=== PATIENT | male | born 1975 | race Two or more races ===

== ENCOUNTER 2021-07-01 21:43 | Emergency (ER) | payer OTHER ==
[2021-07-01 21:52] VITALS: BP 164/100; PULSE 80; TEMP 98.7; BMI 30.8
[2021-07-01] MEDS ORDERED: CYCLOBENZAPRINE HCL 10 MG TABLET (FP) PO ONE (22:03)
[2021-07-01] MEDS ORDERED: KETOROLAC TROMETHAMINE 60 MG/2 ML VIAL IM ONE (22:03)
[2021-07-01] MEDS ORDERED: predniSONE 20 MG TABLET (UD) PO ONE (22:03)
[2021-07-01] MEDS ORDERED: KETOROLAC TROMETHAMINE 60 MG/2 ML VIAL ONE (22:09)
[2021-07-01] MEDS ORDERED: predniSONE 20 MG TABLET (UD) ONE (22:09)
[2021-07-01] MEDS ORDERED: METHOCARBAMOL 500 MG TABLET ONE (22:11)
[2021-07-01] MEDS ORDERED: METHOCARBAMOL 500 MG TABLET PO ONE (22:11)
== END 2021-07-01 22:21 | disposition home or self-care (01) ==
LOC: FER 21:43
PROC: 3E0233Z Introduction of Anti-inflammatory into Muscle, Percutaneous Approach (ICD-10-PCS; principal; 2021-07-01)
DX: M54.6 Pain in thoracic spine (principal); M62.830 Muscle spasm of back
CPT/HCPCS: 99283-25

== ENCOUNTER 2021-07-10 11:23 | Emergency (ER) | payer OTHER ==
[2021-07-10] MEDS ORDERED: IBUPROFEN 400 MG TABLET (FP) PO ONE (11:28)
[2021-07-10 11:39] VITALS: BP 151/100; PULSE 97; TEMP 99.3; BMI 31.4
[2021-07-10] MEDS ORDERED: ACETAMINOPHEN 325 MG TABLET (FP) PO ONE (11:46)
[2021-07-10] MEDS ORDERED: ACETAMINOPHEN 325 MG TABLET (FP) ONE (11:54)
== END 2021-07-10 12:12 | disposition home or self-care (01) ==
LOC: FER 11:23
DX: M54.6 Pain in thoracic spine (principal)
CPT/HCPCS: 99283-25

== ENCOUNTER 2023-03-24 18:59 | Inpatient (IN) | payer OTHER ==
[2023-03-24 19:10] VITALS: BMI 29.4
[2023-03-24] MEDS ORDERED: SODIUM CHLORIDE 0.9% 500 ML INFUS.BAG IV ONE (20:17)
[2023-03-24 20:23] LABS: VENOUS BASE EXCESS -1.1 mmol/L (-2-2); VENOUS O2 SATURATION 63.6 % (70-80); VENOUS PCO2 48.5 mmHg (38-52); VENOUS PH 7.336 (7.310-7.410)
[2023-03-24 20:30] LABS: INR 0.97 (0.83-1.09); PROTHROMBIN TIME (PATIENT) 11.3 SEC (9.7-13.0)
[2023-03-24 20:32] LABS: PH,URINE 5.5 (5.0-8.0); URINE APPEARANCE CLEAR; URINE BILIRUBIN NEGATIVE (NEGATIVE); URINE COLOR YELLOW; URINE GLUCOSE (UA) 3+ (NEGATIVE); URINE KETONE NEGATIVE (NEGATIVE); URINE LEUK ESTERASE NEGATIVE (NEGATIVE); URINE NITRITE NEGATIVE (NEGATIVE); URINE PROTEIN NEGATIVE (NEGATIVE); URINE UROBILINOGEN 0.2 mg/dL (0.2-1.0)
[2023-03-24 20:33] LABS: ACTIVATED PTT 25.4 SECONDS (25.2-36.5)
[2023-03-24 20:44] LABS: CALCIUM 9.2 mg/dL (8.5-10.1)
[2023-03-24 20:45] LABS: BLOOD UREA NITROGEN 18.8 mg/dL (7-18); CO2 25 mmol/L (21-32)
[2023-03-24 20:48] LABS: CREATININE 1.8 mg/dL (0.55-1.3); SGOT/AST 55 U/L (15-37); SGPT/ALT 41 U/L (13-61)
[2023-03-24 20:49] LABS: BILIRUBIN,TOTAL 0.8 mg/dL (0.2-1)
[2023-03-24 20:50] LABS: TOT PROT 7.2 g/dl (6.4-8.2)
[2023-03-24 20:51] LABS: ALK PHOS 115 U/L (45-117)
[2023-03-24 20:53] LABS: LACTIC ACID 2.1 mmol/L (0.4-2.0)
[2023-03-24 21:17] LABS: BASO % 0.8 % (0-2.0); EOS % 0.5 % (0-4.5); HEMATOCRIT 40.3 % (35.4-49); HEMOGLOBIN 13.7 GM/dL (11.7-16.9); LYMPH % 22.1 % (8-40); MCH 30.5 pg (25.7-33.7); MCHC 33.9 g/dl (32.0-35.9); MEAN CELL VOLUME 89.8 fl (80-96); MEAN PLT VOLUME 9.4 fl (7.5-11.1); MONO % 7.6 % (3.8-10.2); PLATELET COUNT 254 10^3/uL (134-434); RBC 4.49 M/mm3 (4.00-5.60); RDW 13.4 % (11.9-15.9); WHITE BLOOD COUNT 14.4 K/mm3 (4.0-10.0)
[2023-03-24 21:23] LABS: CHLORIDE 94 mmol/L (98-107); POTASSIUM 3.9 mmol/L (3.5-5.1); SODIUM 127 mmol/L (136-145)
[2023-03-24 21:43] LABS: GLUCOSE,RANDOM 584 mg/dL (74-106)
[2023-03-24] MEDS ORDERED: INSULIN REGULAR HUMAN 100 UNITS/ML *VIAL SQ ONE (22:16)
[2023-03-24] MEDS ORDERED: POTASSIUM CHLORIDE ORAL LIQUID 20 MEQ/15 ML PO ONE (22:16)
[2023-03-24] MEDS ORDERED: POTASSIUM CHLORIDE ORAL LIQUID 20 MEQ/15 ML ONE (22:23)
[2023-03-24 22:57] LABS: MAGNESIUM 2.1 mg/dL (1.8-2.4)
[2023-03-25] MEDS ORDERED: HEPARIN NA (PORCINE) 5,000 UNITS/ML 1ML VIAL ONE (06:08)
[2023-03-25] MEDS: HEPARIN NA (PORCINE) 5,000 UNITS/ML 1ML VIAL SQ SCH ×3 (06:30→22:36)
[2023-03-25] MEDS: INSULIN SLIDING SCALE (NOVOLOG) 1 VIAL SQ SCH ×3 (06:31→16:01)
[2023-03-25] MEDS: LACTATED RINGERS SOLUTION 1,000 ML/1,000 ML INFUS.BAG IV SCH ×2 (06:31→14:04)
[2023-03-25] MEDS ORDERED: INSULIN (NOVOLOG) ASPART 100 UNITS/ML 10ML VIAL ONE (06:37)
[2023-03-25 07:39] LABS: HEMATOCRIT 40.7 % (35.4-49); HEMOGLOBIN 13.7 GM/dL (11.7-16.9); MCH 31.1 pg (25.7-33.7); MCHC 33.5 g/dl (32.0-35.9); MEAN CELL VOLUME 92.8 fl (80-96); MEAN PLT VOLUME 9.7 fl (7.5-11.1); PLATELET COUNT 209 10^3/uL (134-434); RBC 4.39 M/mm3 (4.00-5.60); RDW 13.4 % (11.9-15.9); WHITE BLOOD COUNT 12.4 K/mm3 (4.0-10.0)
[2023-03-25 07:57] LABS: POTASSIUM 3.8 mmol/L (3.5-5.1)
[2023-03-25 07:59] LABS: BLOOD UREA NITROGEN 13.2 mg/dL (7-18); CALCIUM 8.8 mg/dL (8.5-10.1); MAGNESIUM 1.9 mg/dL (1.8-2.4)
[2023-03-25 08:02] LABS: PHOSPHOROUS 3.2 mg/dL (2.5-4.9)
[2023-03-25 08:04] LABS: BILIRUBIN,TOTAL 0.9 mg/dL (0.2-1); TOT PROT 7.1 g/dl (6.4-8.2)
[2023-03-25] MEDS ORDERED: GABAPENTIN 300 MG CAPSULE ONE (08:04)
[2023-03-25] MEDS ORDERED: NICOTINE 7 MG/24 HOURS TOPICAL PATCH TD ONE (08:04)
[2023-03-25] MEDS: GABAPENTIN 300 MG CAPSULE PO SCH ×3 (08:24→22:37)
[2023-03-25 08:26] LABS: CREATININE 1.2 mg/dL (0.55-1.3)
[2023-03-25] MEDS ORDERED: LACTATED RINGERS SOLUTION 1000 ML INFUS.BAG IV ONE (09:15)
[2023-03-25] MEDS ORDERED: INSULIN (LEVEMIR) 100 UNITS/ML UNITS SQ SCH (10:00)
[2023-03-25] MEDS ORDERED: NICOTINE 7 MG/24 HOURS TOPICAL PATCH TD SCH (10:00)
[2023-03-25 12:20] LABS: COCAINE, UR NEGATIVE (NEGATIVE); METHADONE, UR NEGATIVE (NEGATIVE); PHENCYCLIDINE,URINE NEGATIVE (NEGATIVE); URINE BARBITURATES NEGATIVE (NEGATIVE); URINE BENZODIAZEPINES NEGATIVE (NEGATIVE)
[2023-03-25 12:21] LABS: OPIATES, URI POSITIVE (NEGATIVE); URINE AMPHETAMINES NEGATIVE (NEGATIVE)
[2023-03-25] MEDS ORDERED: ATORVASTATIN CA 40 MG TABLET (FP) PO SCH (22:00)
[2023-03-25] MEDS: INSULIN (LEVEMIR) 100 UNITS/ML UNITS SQ SCH (22:36)
[2023-03-26] MEDS: HEPARIN NA (PORCINE) 5,000 UNITS/ML 1ML VIAL SQ SCH ×3 (06:24→22:36)
[2023-03-26] MEDS: GABAPENTIN 300 MG CAPSULE PO SCH ×3 (06:24→22:36)
[2023-03-26] MEDS: INSULIN (LEVEMIR) 100 UNITS/ML UNITS SQ SCH ×2 (06:24→22:35)
[2023-03-26] MEDS: INSULIN SLIDING SCALE (NOVOLOG) 1 VIAL SQ SCH ×3 (06:32→17:37)
[2023-03-26 07:34] LABS: HEMATOCRIT 39.1 % (35.4-49); MCH 30.9 pg (25.7-33.7); MCHC 33.2 g/dl (32.0-35.9); MEAN PLT VOLUME 8.8 fl (7.5-11.1); PLATELET COUNT 206 10^3/uL (134-434); RDW 13.2 % (11.9-15.9); WHITE BLOOD COUNT 7.7 K/mm3 (4.0-10.0)
[2023-03-26 07:36] LABS: CHLORIDE 99 mmol/L (98-107); POTASSIUM 4.6 mmol/L (3.5-5.1); SODIUM 137 mmol/L (136-145)
[2023-03-26 07:40] LABS: ANION GAP 11 mmol/L (4-13); BLOOD UREA NITROGEN 16.5 mg/dL (7-18); CO2 28 mmol/L (21-32)
[2023-03-26 07:43] LABS: PHOSPHOROUS 3.5 mg/dL (2.5-4.9)
[2023-03-26 07:44] LABS: CREATININE 1.3 mg/dL (0.55-1.3)
[2023-03-26 07:50] LABS: GLUCOSE,RANDOM 452 mg/dL (74-106)
[2023-03-26] MEDS: LACTATED RINGERS SOLUTION 1,000 ML/1,000 ML INFUS.BAG IV SCH (09:11)
[2023-03-26] MEDS: NICOTINE 21 MG/24 HOURS TOPICAL PATCH TD SCH (10:44)
[2023-03-26] MEDS: INSULIN (NOVOLOG) ASPART 100 UNITS/ML 10ML VIAL SQ SCH (17:38)
[2023-03-26] MEDS: NICOTINE POLACRILEX 4 MG GUM BUC PRN (20:30)
[2023-03-27] MEDS ORDERED: hydrOXYzine PAMOATE 25 MG CAPSULE (FP) PO ONE (05:36)
[2023-03-27] MEDS: NICOTINE POLACRILEX 4 MG GUM BUC PRN (06:00)
[2023-03-27] MEDS: HEPARIN NA (PORCINE) 5,000 UNITS/ML 1ML VIAL SQ SCH ×2 (06:09→14:08)
[2023-03-27] MEDS: GABAPENTIN 300 MG CAPSULE PO SCH ×2 (06:09→14:08)
[2023-03-27] MEDS: INSULIN (LEVEMIR) 100 UNITS/ML UNITS SQ SCH (06:13)
[2023-03-27] MEDS: INSULIN (NOVOLOG) ASPART 100 UNITS/ML 10ML VIAL SQ SCH ×2 (06:13→12:31)
[2023-03-27] MEDS: INSULIN SLIDING SCALE (NOVOLOG) 1 VIAL SQ SCH ×2 (06:15→12:06)
[2023-03-27] MEDS: LACTATED RINGERS SOLUTION 1,000 ML/1,000 ML INFUS.BAG IV SCH (09:44)
[2023-03-27] MEDS: NICOTINE 21 MG/24 HOURS TOPICAL PATCH TD SCH (09:45)
[2023-03-27 10:52] LABS: EOS % 1.1 % (0-4.5); HEMATOCRIT 41.9 % (35.4-49); LYMPH % 22.9 % (8-40); MCH 30.5 pg (25.7-33.7); MCHC 33.4 g/dl (32.0-35.9); MEAN CELL VOLUME 91.4 fl (80-96); MEAN PLT VOLUME 8.4 fl (7.5-11.1); MONO % 6.3 % (3.8-10.2); NEUT % 68.7 % (42.8-82.8); PLATELET COUNT 230 10^3/uL (134-434); RBC 4.58 M/mm3 (4.00-5.60); RDW 13.1 % (11.9-15.9); WHITE BLOOD COUNT 7.8 K/mm3 (4.0-10.0)
[2023-03-27] MEDS ORDERED: INSULIN (LEVEMIR) 100 UNITS/ML UNITS SQ SCH ×2 (11:26→11:30)
[2023-03-27] MEDS ORDERED: INSULIN (LEVEMIR) 100 UNITS/ML UNITS SQ ONE ×2 (11:26→12:15)
[2023-03-27] MEDS ORDERED: INSULIN (NOVOLOG) ASPART 100 UNITS/ML 10ML VIAL SQ SCH (11:30)
[2023-03-27 12:07] LABS: ALBUMIN 3.7 g/dl (3.4-5.0); BLOOD UREA NITROGEN 9.9 mg/dL (7-18); CALCIUM 9.4 mg/dL (8.5-10.1)
[2023-03-27 12:08] LABS: MAGNESIUM 1.9 mg/dL (1.8-2.4)
[2023-03-27 12:10] LABS: PHOSPHOROUS 2.8 mg/dL (2.5-4.9)
[2023-03-27 12:11] LABS: BILIRUBIN,TOTAL 0.7 mg/dL (0.2-1); TOT PROT 6.9 g/dl (6.4-8.2)
[2023-03-27] MEDS ORDERED: amLODIPine BESYLATE 5 MG TABLET (FP) PO ONE (12:15)
[2023-03-27 12:39] VITALS: BP 162/105; PULSE 83; RESP 20; TEMP 98.1
[2023-03-27 12:56] LABS: POTASSIUM 3.8 mmol/L (3.5-5.1)
[2023-03-27] MEDS ORDERED: LOSARTAN POTASSIUM 25 MG TABLET PO SCH (13:30)
[2023-03-28] MEDS ORDERED: amLODIPine BESYLATE 5 MG TABLET (FP) PO SCH (10:00)
== END 2023-03-27 17:45 | disposition left against medical advice (07) | DRG 351 ==
LOC: JER 18:59 → JERBED 22:07 → J5S 03-25 11:30
PROVIDERS: ADMIT Internal Medicine; ATTEND Student in an Organized Health Care Education/Training Program
DX: T79.6XXA Traumatic ischemia of muscle, initial encounter (principal); N17.9 Acute kidney failure, unspecified; E87.1 Hypo-osmolality and hyponatremia; E11.65 Type 2 diabetes mellitus with hyperglycemia; E78.5 Hyperlipidemia, unspecified; F12.90 Cannabis use, unspecified, uncomplicated; F17.210 Nicotine dependence, cigarettes, uncomplicated; G47.33 Obstructive sleep apnea (adult) (pediatric); R29.6 Repeated falls; W19.XXXA Unspecified fall, initial encounter; Y93.9 Activity, unspecified; Y92.89 Other specified places as the place of occurrence of the external cause; Y99.9 Unspecified external cause status
CPT/HCPCS: 36415; 70450-TC; 71045-TC-FY; 73070-TC-RT-FY; 74176-TC; 76775-TC; 80048; 80053; 80061; 80307; 81003; 82010; 82550; 82553; 82803; 82962; 83036; 83605; 83735; 84100; 84443; 84484; 84550; 85025; 85027; 85610; 85730; 87086; 87635; 93005; 93010; 97116-GP; 97162-GP; 99291; J1644